=== PATIENT | female | born 1965 | race Caucasian/White ===

== ENCOUNTER → 2016-09-28 | Outpatient (CLI) | payer OTHER ==
--- NOTE | 2016-09-28 13:05 | Diagnostic Imaging Report ---
PROCEDURE: MRI left upper extremity without contrast. TECHNIQUE: Multiplanar, multisequence non contrast-enhanced MRI of the left upper extremity was accomplished. INDICATION: Right shoulder pain. FINDINGS: There is no os acromiale or Hill-Sachs deformity. The acromioclavicular joint demonstrates capsular hypertrophy with no significant osteophyte formation. The acromion has a slightly laterally downsloping configuration. There is thickening in the rotator cuff supraspinatus and infraspinatus distal tendons with the tendinosis and bursal side partial tears. No full-thickness tear. The subscapular tendon appears intact. The long head of the biceps tendon is in its groove. There is a small glenohumeral joint effusion. There is increased signal involving the superior segment of the labrum which could relate to a degeneration or nondisplaced tears. The muscles around the shoulder have normal signal and bulk. IMPRESSION: 1. Rotator cuff tendinosis and bursal side the partial tears. 2. Suggestion of a superior labrum degeneration and/or nondisplaced tear. Dictated by: Dictated on workstation # [id number]
== END ==
LOC: RAD 11:50
PROVIDERS: ATTEND Nurse Practitioner Family
DX: M65.812 Other synovitis and tenosynovitis, left shoulder (principal)
CPT/HCPCS: 73221